=== PATIENT | female | born 1990 | race Hispanic/Latino ===

== ENCOUNTER 2016-10-30 08:50 | Emergency (ER) | payer OTHER ==
[2016-10-30 09:28] VITALS: BMI 17.7
[2016-10-30 09:32] VITALS: TEMP 98.7; O2SAT 100
[2016-10-30] MEDS ORDERED: Rabies Vaccine 2.5 U VIAL IM ONE (10:22)
--- NOTE | 2016-10-30 10:25 | ED PDOC ---
Arrival/HPI - General Historian: Patient - General Chief Complaint: Rabies Vaccine Series Time Seen by Provider: 10/30/16 09:38 - History of Present Illness Narrative History of Present Illness (Text): 10/30/16 10:28 26 y/o female, no pmh, nkda, last tetanus under 5 years, last rabies prevaccinated in 2017, here for the rabies vaccination. Pt. [place], immediately clean with the antiseptic betadine and soap on the rt. thumb pad which the wound already healed, no fever or chills, no headache or night sweat, no dizziness, no discomfort, just here for the routine vaccination up date. Pt. has been eating and drinking well, no other medical or psychological complaints. (Kyle Basurto) Past Medical History - Provider Review Nursing Documentation Reviewed: Yes - Travel History If Yes, travel location?: [place] - Psychiatric Hx Substance Use: No Family/Social History - Physician Review Nursing Documentation Reviewed: Yes Family/Social History: Unknown Family HX Smoking Status: Never Smoked Hx Alcohol Use: No Hx Substance Use: No Allergies/Home Meds Allergies/Adverse Reactions: Allergies No Known Allergies Allergy (Verified 10/30/16 09:28) Home Medications: Home Meds Medication Instructions Recorded Confirmed Levonorgestrel-Ethin Estradiol 1 tab PO DAILY 10/30/16 10/30/16 [Orsythia-28 Tablet] Review of Systems - Review of Systems Constitutional: absent: Fatigue, Weight Change, Fevers, Night Sweats Eyes: Normal. absent: Vision Changes, Photophobia ENT: absent: Hearing Changes, Sore Throat, Rhinorrhea Respiratory: absent: SOB, Cough, Sputum Cardiovascular: absent: Chest Pain Gastrointestinal: absent: Abdominal Pain, Diarrhea, Nausea, Vomiting, Hematochezia Musculoskeletal: absent: Arthralgias, Neck Pain, Joint Swelling Skin: absent: Rash, Pruritis, Skin Lesions, Laceration Neurological: absent: Headache, Dizziness, Focal Weakness, Speech Changes, Facial Droop, Disequilibrium Endocrine: absent: Diaphoresis, Polyuria Psychiatric: absent: Anxiety, Depression, Suicidal Ideation Physical Exam Vital Signs Reviewed: Yes Temperature: Afebrile Blood Pressure: Normal Pulse: Regular Respiratory Rate: Normal Appearance: Positive for: Well-Appearing, Non-Toxic, Comfortable Pain Distress: None Mental Status: Positive for: Alert and Oriented X 3 - Systems Exam Head: Present: Atraumatic, Normocephalic Pupils: Present: PERRL Extroacular Muscles: Present: EOMI Conjunctiva: Present: Normal Mouth: Present: Moist Mucous Membranes Neck: Present: Normal Range of Motion Respiratory/Chest: Present: Clear to Auscultation, Good Air Exchange. No: Respiratory Distress, Accessory Muscle Use Cardiovascular: Present: Regular Rate and Rhythm, Normal S1, S2. No: Murmurs Abdomen: Present: Normal Bowel Sounds. No: Tenderness, Distention, Peritoneal Signs Back: Present: Normal Inspection Upper Extremity: Present: Normal Inspection, Other (Rt. hand thumb: visible healed superficial abrasion wound on the ventral aspect less than 0.1mm, no erythematous, FROM without limitation, sensation intact, motor 5/5, +radial pulse, capillary refill< 2 seconds, neurovascular intact. ). No: Cyanosis, Edema Lower Extremity: Present: Normal Inspection. No: Edema Neurological: Present: GCS=15, Speech Normal, Motor Func Grossly Intact, Gait Normal, Memory Normal Skin: Present: Warm, Dry, Normal Color. No: Rashes Psychiatric: Present: Alert, Oriented x 3, Normal Insight, Normal Concentration Medical Decision Making ED Course and Treatment: 10/30/16 10:15 -Pt. has been fully vaccinated on the rabies previously less than 6 months ago with 4 ser. Pt. did clean the wound with betadine and soap, no swelling and wound completely healed and dry, no pain, healed abrasion wound with the scar with no pain. -Pt. should of receive the rabies vaccine sooner [place] this trip, will give rabies shots as per CDC. Based on the CDC website, pt. should received 2 doses on day 0 and 3. -wound already healed with no indication of the oral antibiotic. -Discharge home with education on return on the day 3 for additional rabies vaccine, follow up with your own pmd and infectious disease within 2 days, return to the ER for any new or worsening signs or symptoms. (Kyle Basurto) I was available for consultation during PA evaluation. The chart was reviewed by me, and I agree with disposition. The documented history was done by the physician summons server. The documented physical exam was done by the physician summons server. The documented procedures were done by the physician summons server. ( Go Mckinney) - Medication Orders Current Medication Orders: Discontinued Medications Rabies Vaccine Human Diploid Cell (Imovax Rabies) 2.5 u IM .ONCE ONE Stop: 10/30/16 10:23 Last Admin: 10/30/16 10:58 Dose: 2.5 u - PA / MOLD ENGRAVER / Resident Statement MD/DO has reviewed & agrees with the documentation as recorded. Disposition/Present on Arrival - Present on Arrival Any Indicators Present on Arrival: No History of DVT/PE: No History of Uncontrolled Diabetes: No Urinary Catheter: No History of Decub. Ulcer: No History Surgical Site Infection Following: None - Disposition Have Diagnosis and Disposition been Completed?: Yes Disposition Time: 10:33 Patient Plan: Discharge, Observation - Disposition Diagnosis: Contact with and (suspected) exposure to rabies Disposition: HOME/ ROUTINE Condition: GOOD Additional Instructions: ischarge home with education on return on the day 3 for additional rabies vaccine, follow up with your own pmd and infectious disease within 2 days, return to the ER for any new or worsening signs or symptoms. Referrals: Oleg Rehman MD [Staff Provider] - Follow up with primary [facility] at [facility] [place] [Outside] - Follow up with primary Forms: WORK NOTE
[2016-10-30 11:12] VITALS: BP 132/80; PULSE 86; RESP 17
== END 2016-10-30 11:07 | disposition home or self-care (01) ==
LOC: ED 08:50
DX: Z20.3 Contact with and (suspected) exposure to rabies (principal); Z23 Encounter for immunization

== ENCOUNTER 2016-10-30 17:40 | Emergency (ER) | payer OTHER ==
[2016-10-30 17:40] VITALS: BMI 17.7
[2016-10-30 17:52] VITALS: TEMP 100.1
[2016-10-30] MEDS ORDERED: Sodium Chloride 0.9% 1,000 ML IV STA (18:42)
[2016-10-30 18:50] LABS: ADD MANUAL DIFF? NO
[2016-10-30 18:54] LABS: BASO # 0.01 K/mm3 (0.0-2.0); BASO % 0.1 % (0.0-3.0); EOS # 0.1 (0.0-0.7); EOS % 0.7 % (1.5-5.0); GRAN # 5.13 (1.4-6.5); GRAN % 72.7 % (50.0-68.0); HEMATOCRIT 48.7 % (36.0-48.0); LYMPH # 0.9 (1.2-3.4); LYMPH % 12.4 % (22.0-35.0); MEAN CORPUSCULAR HEMOGLOBIN 30.7 pg (25.0-35.0); MEAN CORPUSCULAR HGB CONC 34.5 g/dl (31.0-37.0); MEAN PLATELET VOLUME 10.3 fl (7.0-11.0); MONO % 14.1 % (1.0-6.0); PLATELET COUNT 183 10^3/uL (120.0-450.0); RED CELL DISTRIBUTION WIDTH 13.8 % (11.5-14.5); WHITE BLOOD COUNT 7.1 10^3/ul (4.5-11.0)
[2016-10-30 19:10] LABS: ALB/GLOB RATIO 1.2 (1.1-1.8); ALKALINE PHOSPHATASE 31 U/L (38-133); ALT/SGPT 32 U/L (7-56); AST/SGOT 22 U/L (15-39); BILIRUBIN,TOTAL 0.7 mg/dL (0.2-1.3); BLOOD UREA NITROGEN 9 mg/dL (7-21); CALCIUM 9.5 mg/dL (8.4-10.5); CARBON DIOXIDE 28 mmol/L (21-33); CHLORIDE 98 mmol/L (98-107); GFR AFRICAN-AMERICAN > 60; GLUCOSE,RANDOM 141 mg/dL (70-110); POTASSIUM 3.9 mmol/L (3.6-5.0); SODIUM 139 mmol/L (132-148); TOTAL PROTEIN 8.5 g/dL (5.8-8.3)
--- NOTE | 2016-10-30 19:31 | ED PDOC ---
Arrival/HPI - History of Present Illness Time/Duration: Prior to Arrival Symptom Onset: Sudden Symptom Course: Unchanged - General Chief Complaint: Fever Time Seen by Provider: 10/30/16 18:02 - History of Present Illness Narrative History of Present Illness (Text): 26 F with no significant pmh presents with fever since this morning. 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 There was no emergency department near where she worked so she waited to come here today. The patient states that a 6 months before she went to work she received all 3 preventative prophylactic rabies vaccine. This morning she came here to the emergency department received a post exposure vaccine and was told to follow up with her primary in 3 days for second dose. When she went home she got a fever of 102.8 and she did not know if it is due to the rabies vaccine or due to an URI that she has been having in the past 2. Pt states that she has a non productive cough with runny nose and post nasal drip. Pt denies any difficulty eating or drinking. Denies any headache, chills, light sensitivity, chest pain, abd pain, n/v/d, urinary or bm changes. ([place],[facility]) Past Medical History - Provider Review Nursing Documentation Reviewed: Yes - Travel History If Yes, travel location?: [facility] - Psychiatric Hx Substance Use: No Family/Social History Family/Social History: No Known Family HX Smoking Status: Never Smoked Hx Alcohol Use: No Hx Substance Use: No Allergies/Home Meds Allergies/Adverse Reactions: Allergies No Known Allergies Allergy (Verified 10/30/16 17:51) Home Medications: Home Meds Medication Instructions Recorded Confirmed Levonorgestrel-Ethin Estradiol 1 tab PO DAILY 10/30/16 10/30/16 [Orsythia-28 Tablet] Review of Systems - Review of Systems Constitutional: absent: Fatigue, Fevers Eyes: absent: Vision Changes ENT: absent: Hearing Changes Respiratory: Cough. absent: SOB, Sputum, Wheezing Cardiovascular: absent: Chest Pain, Palpitations, Edema Gastrointestinal: absent: Abdominal Pain, Diarrhea, Nausea, Vomiting, Food Intolerance Genitourinary Female: absent: Dysuria, Frequency Musculoskeletal: absent: Arthralgias, Myalgias Skin: absent: Rash Neurological: absent: Headache, Dizziness Psychiatric: absent: Anxiety, Depression Physical Exam Temperature: Afebrile Blood Pressure: Normal Pulse: Tachycardic Respiratory Rate: Normal Appearance: Positive for: Well-Appearing, Non-Toxic, Comfortable Pain Distress: None Mental Status: Positive for: Alert and Oriented X 3 - Systems Exam Head: Present: Atraumatic, Normocephalic Pupils: Present: PERRL Extroacular Muscles: Present: EOMI Conjunctiva: Present: Normal Mouth: Present: Moist Mucous Membranes Pharnyx: No: ERYTHEMA, EXUDATE, Peritonsilar Swelling Neck: Present: Normal Range of Motion Respiratory/Chest: Present: Clear to Auscultation, Good Air Exchange. No: Respiratory Distress, Accessory Muscle Use Cardiovascular: Present: Regular Rate and Rhythm, Normal S1, S2. No: Murmurs Abdomen: Present: Normal Bowel Sounds. No: Tenderness, Distention, Peritoneal Signs Upper Extremity: Present: Normal Inspection, Other (finger: site of bite fully healed.). No: Cyanosis, Edema Lower Extremity: Present: Normal Inspection. No: Edema Neurological: Present: GCS=15, CN II-XII Intact, Speech Normal Skin: Present: Warm, Dry, Normal Color. No: Rashes Psychiatric: Present: Alert, Oriented x 3, Normal Insight, Normal Concentration Medical Decision Making ED Course and Treatment: Impression: 26 F with pmh of being bit by a bat at work 1 week prior present to the emergency department this morning and recieved post exposure ppx and now presents with fever since this morning. Differential Diagnosis included but are not limited to: Plan: - CBC CMP - 1 L fluid - Reassess and disposition Prior Visits: Notes and results from previous visits were reviewed. On 10/30/16 patient came in complaining of post exposure vaccine for rabies. Progress Notes: Pt hemodynamically stable. Afebrile. Instructed to follow up with her PMD in 3 days to receive the second post exposure vaccine. If your symptoms worsen please return to the emergency department. (Candelario Jacobsen) Patient Seen With Resident: In agreement with resident note. Patient was seen and evaluated with resident, came up with plan and treatment together. (Ryan Clarke DO) - Lab Interpretations Lab Results: 10/30/16 18:30 10/30/16 18:30 Lab Results 10/30/16 18:30: Sodium 139, Potassium 3.9, Chloride 98, Carbon Dioxide 28, Anion Gap 17, BUN 9, Creatinine 1.0, Est GFR ( Amer) > 60, Est GFR (Non- Af Amer) > 60, Random Glucose 141 H, Calcium 9.5, Total Bilirubin 0.7, AST 22, ALT 32, Alkaline Phosphatase 31 L, Total Protein 8.5 H, Albumin 4.7, Globulin 3.8, Albumin/Globulin Ratio 1.2 10/30/16 18:30: WBC 7.1, RBC 5.47, Hgb 16.8 H, Hct 48.7 H, MCV 89.0, MCH 30.7, MCHC 34.5, RDW 13.8, Plt Count 183, MPV 10.3, Gran % 72.7 H, Lymph % (Auto) 12.4 L, [place] % (Auto) 14.1 H, Eos % (Auto) 0.7 L, Baso % (Auto) 0.1, Gran # 5.13 , Lymph # 0.9 L, [place] # 1.0 H, Eos # 0.1, Baso # 0.01 - Medication Orders Current Medication Orders: Discontinued Medications Sodium Chloride (Sodium Chloride 0.9%) 1,000 mls @ 999 mls/hr IV .Q1H1M STA Stop: 10/30/16 19:42 Last Admin: 10/30/16 19:08 Dose: 999 mls/hr - PA / MARINE UNDERWRITER / Resident Statement / has reviewed & agrees with the documentation as recorded. / has examined the patient and agrees with the treatment plan. Disposition/Present on Arrival - Present on Arrival Any Indicators Present on Arrival: Yes History of DVT/PE: No History of Uncontrolled Diabetes: No Urinary Catheter: No History of Decub. Ulcer: No History Surgical Site Infection Following: None - Disposition Have Diagnosis and Disposition been Completed?: Yes Disposition Time: 19:15 Patient Plan: Discharge - Disposition Diagnosis: Viral syndrome Disposition: HOME/ ROUTINE Condition: IMPROVED Discharge Instructions (ExitCare): Viral Syndrome (ED) Additional Instructions: Nayana Mccray, thank you for letting us take care of you today. Your provider was Dr Clarke. You were treated for fever for URI. The emergency medical care you received today was directed at your acute symptoms. If you were prescribed any medication, please fill it and take as directed. It may take several days for your symptoms to resolve. Return to the Emergency Department if your symptoms worsen, do not improve, or if you have any other problems. Please contact your doctor or call one of the physicians/clinics you have been referred to that are listed on the Patient Visit Information form that is included in your discharge packet. Bring any paperwork you were given at discharge with you along with any medications you are taking to your follow up visit. Our treatment cannot replace ongoing medical care by a primary care provider (PCP) outside of the emergency department. Thank you for allowing the [facility] team to be part of your care today. Instructed to follow up with her PMD in 3 days to receive the second post exposure vaccine, from your previous visit. If your symptoms worsen please return to the emergency department. Referrals: Mae Hill, [Primary Care Provider] - Follow up with primary
[2016-10-30 19:55] VITALS: PULSE 101; RESP 17; O2SAT 99
[2016-10-30 20:30] VITALS: BP 120/84
== END 2016-10-30 20:30 | disposition home or self-care (01) ==
LOC: ED 17:40
DX: B34.9 Viral infection, unspecified (principal)
CPT/HCPCS: 80053; 85025; 96360; 99285; J7040

== ENCOUNTER 2016-11-01 09:12 | Emergency (ER) | payer OTHER ==
[2016-11-01 09:13] VITALS: BMI 17.7
[2016-11-01 09:16] VITALS: BP 152/97; PULSE 60; RESP 16; TEMP 98.7; O2SAT 100
[2016-11-01] MEDS ORDERED: Rabies Vaccine 2.5 U VIAL IM ONE (09:30)
--- NOTE | 2016-11-01 09:45 | ED PDOC ---
Arrival/HPI - General Chief Complaint: Rabies Vaccine Series Time Seen by Provider: 11/01/16 09:22 - History of Present Illness Narrative History of Present Illness (Text): 26 y/o F presents for 2nd rabies vaccine. Patient was here 2 days ago after an international trip in which she was bitten by a bat on the thumb. Prior to the trip, she had received preexposure vaccination. The wound is healed, and she denies pain, erythema, or discharge. Past Medical History - Travel History If Yes, travel location?: [place] - Psychiatric Hx Psychophysiologic Disorder: No Hx Substance Use: No Family/Social History Family/Social History: No Known Family HX Smoking Status: Never Smoked Hx Alcohol Use: No Hx Substance Use: No Allergies/Home Meds Allergies/Adverse Reactions: Allergies No Known Allergies Allergy (Verified 11/01/16 09:15) Home Medications: Home Meds Medication Instructions Recorded Confirmed Levonorgestrel-Ethin Estradiol 1 tab PO DAILY 10/30/16 11/01/16 [Orsythia-28 Tablet] Review of Systems - Physician Review All systems were reviewed & negative as marked: Yes - Review of Systems Respiratory: absent: SOB Cardiovascular: absent: Chest Pain Physical Exam - Physical Exam Narrative Physical Exam (Text): Constitutional: No acute distress. Extremities: Thumb with 2 punctate wounds, no discharge, erythema, or swelling. Vital Signs Temp Pulse Resp BP Pulse Ox 11/01/16 09:15 98.7 F 60 16 152/97 H 100 Medical Decision Making ED Course and Treatment: Patient states she will not seek medical care tomorrow. As such, will provide second shot in series today. - Medication Orders Current Medication Orders: Discontinued Medications Rabies Vaccine Human Diploid Cell (Imovax Rabies) 2.5 u IM .ONCE ONE Stop: 11/01/16 09:31 Last Admin: 11/01/16 09:40 Dose: 2.5 u Disposition/Present on Arrival - Present on Arrival Any Indicators Present on Arrival: No History of DVT/PE: No History of Uncontrolled Diabetes: No Urinary Catheter: No History of Decub. Ulcer: No History Surgical Site Infection Following: None - Disposition Have Diagnosis and Disposition been Completed?: Yes Diagnosis: Need for rabies vaccination Disposition: HOME/ ROUTINE Disposition Time: 09:45 Patient Plan: Discharge Patient Problems: Current Active Problems Problem Status Onset Need for rabies vaccination Acute Condition: STABLE Discharge Instructions (ExitCare): Rabies Vaccine (By injection)
== END 2016-11-01 09:53 | disposition home or self-care (01) ==
LOC: ED 09:12
DX: Z23 Encounter for immunization (principal)